=== PATIENT | male | born 1950 | race Caucasian/White ===

== ENCOUNTER 2020-03-18 10:59 | Observation (INO) ==
[2020-03-18] MEDS ORDERED: 0.9 % SODIUM CHLORIDE 1,000 ML IV ONE ×3 (11:10→17:17)
--- NOTE | 2020-03-18 11:26 | Emergency Department Note ---
Weakness HPI General Chief complaint: Weakness Stated complaint: weakness, dizziness Time Seen by Provider: 03/18/20 11:07 Source: patient Mode of arrival: EMS Limitations: no limitations History of Present Illness HPI Narrative: Narrative: This pleasant 70-year-old female comes emergency room accompanied by his Qi with 5-day history of generalized weakness. There is also lightheaded and dizziness that is off and on. He vomited today only once. No nausea. He has been eating fairly well. He was seen last week at [facility] for the same 5 days ago with lab test that were unremarkable. He denies vertigo. He is on blood pressure medication, lisinopril and this dose was decreased to half twice daily in December. His blood pressure has been a little bit low reportedly. No fevers or sweats but did feels quite cold and needed a blanket recently per his . Patient does not remember some of these things. Related Data Home Medications Medication Instructions Recorded Confirmed aspirin 81 mg tablet,delayed 81 mg PO QDAY tab 12/27/14 03/18/20 release donepezil 10 mg tablet 10 mg PO QHS 12/22/18 03/18/20 sertraline 50 mg tablet 50 mg PO QDAY 03/24/19 03/18/20 memantine 5 mg tablet 5 mg PO BID tab 09/20/19 03/13/20 colchicine 1.2 mg PO PRN PRN 03/18/20 03/18/20 Previous Rx's Medication Instructions Recorded pen needle, diabetic 29 gauge x #100 each 12/14/18 1/2" hydrochlorothiazide 12.5 mg capsule 12.5 mg PO QDAY #90 cap 06/05/19 atorvastatin 20 mg tablet 20 mg PO QDAY 90 Days #90 tab 06/22/19 metformin 1,000 mg tablet 500 mg PO BID 90 Days #90 tab 08/18/19 liraglutide 0.6 mg/0.1 mL (18 mg/3 1.2 mg SUB-Q QDAY #9 ml 01/08/20 mL) subcutaneous pen injector lisinopril 10 mg tablet 5 mg PO BID 90 Days #90 tab 03/05/20 Allergies Allergy/AdvReac Type Severity Reaction Status Date / Time No Known Drug Allergies Allergy Unknown Unknown Verified 03/18/20 11:04 Review of Systems ROS ROS Narrative: Narrative: Denies chest pain No cough or shortness of breath or wheeze or phlegm No abdominal pain, diarrhea, constipation, hematochezia No dysuria No back pain Headaches No anxiety or depression. [facility] Narrative Patient History Narrative: Narrative: DENIES: Renal disease, blood thinners, atrial fibrillation, myocardial inf arction, CVA, TIA, anxiety, depression. He reports having quit cigarettes 30 years ago and alcohol about the same time although there is alcohol and LFT elevation in his chart past medical history. Medical/Surgical/Family History All Active Problems (Updated 03/18/20 @ 17:16 by Minh Pressley DO) Weakness (Acute) Hypertension, essential (Acute) Dizziness (Acute) Bradycardia (Acute) Orthostasis (Acute) Hypokalemia (Acute) DNR (do not resuscitate) (Acute) Elevated lactic acid level (Acute) Bradycardia (Acute) Dizzy (Acute) Uncontrolled diabetes mellitus (Chronic) Mild cognitive impairment (Chronic) Elevated liver function tests (Chronic) Osteoarthritis of both hands (Chronic) Obesity (Chronic) Nuclear sclerosis (Chronic) Essential hypertension (Chronic) Hyperlipidemia (Chronic) Gout (Chronic) Eczema (Chronic) Diabetes mellitus, type II (Chronic) Alcohol abuse (Chronic) Abnormal LFTs (Chronic) Medical History (Updated 03/18/20 @ 17:16 by Minh Pressley DO) Abnormal LFTs (Chronic) 04/11/2014 Alcohol abuse (Chronic) Diabetes mellitus, type II (Chronic) Eczema (Chronic) Elevated liver function tests (Chronic) Essential hypertension (Chronic) Gout (Chronic) Hyperlipidemia (Chronic) Mild cognitive impairment (Chronic) Nuclear sclerosis (Chronic) Obesity (Chronic) Osteoarthritis of both hands (Chronic) Uncontrolled diabetes mellitus (Chronic) Surgical History (Updated 03/18/20 @ 11:25 by Minh Pressley DO) History of colonoscopy (Inactive) 02/19/2009 Dr. Sidhu NORMAL History of vasectomy (Inactive) Family History Father Social History Smoking Status: Former smoker Alcohol Intake Frequency: former alcohol drinker Substance Use: former substance user and crack/cocaine Exam Narrative Narrative: Narrative: General Limitations: no limitations General appearance: alert, in no apparent distress and nontoxic Head Head: atraumatic and normocephalic Eye Eye: Present normal appearance, PERRL and EOMI ENT ENT: Present normal oropharynx and mucous membranes moist (But only slightly.) Neck Neck: Present trachea midline; Absent lymphadenopathy and thyromegaly Chest Chest: Present symmetric chest wall rise Respiratory Respiratory: Present normal lung sounds bilaterally; Absent respiratory distress, rales/crackles, wheezes, stridor, accessory muscle use and prolonged expiratory phase Cardiovascular Cardiovascular: Present regular rate and bradycardia; Absent systolic murmur and diastolic murmur Adbominal Abdominal: Present soft; Absent distention, tenderness, guarding, rebound, rigidity, organomegaly and mass Extremities Extremities: Present normal capillary refill; Absent pedal edema, pretibial edema, calf tenderness and cyanosis Back Back: Absent CVA tenderness (R), CVA tenderness (L) and spinous process tenderness Neurological Neurological: Present alert and oriented X3 Psychiatric Psychiatric: Present normal affect, polite and pleasant; Absent depressed, agitated, anxious and poor eye contact Skin Skin: Present warm and dry; Absent cyanosis and pallor Course Vital Signs Vital signs: Vital Signs Temperature 97.0 F 03/18/20 10:59 Pulse Rate 56 L 03/18/20 10:59 Respiratory Rate 18 03/18/20 10:59 Blood Pressure 136/82 03/18/20 10:59 Pulse Oximetry (%) 100 03/18/20 10:59 Temperature 97.0 F 03/18/20 10:59 Pulse Rate 58 L 03/18/20 16:16 Respiratory Rate 19 03/18/20 16:16 Blood Pressure 154/66 03/18/20 16:16 Pulse Oximetry (%) 100 03/18/20 16:16 [facility] Narrative Medical decision making narrative: Narrative: 11:11 AM - generalized weakness, unexplained with some bradycardia and lightheadedness. Reporting some cold and chills recently. Because he is diabetic and is demonstrating some bradycardia and reportedly nearly passed out with trying to do a blood pressure with him standing, will need to do a fairly thorough work-up. IV fluids. Lactic acid to be included in his work-up, etc. Will do EKG, troponin and chest x-ray as well. EKG sinus rhythm, nonspecific flattening of the T waves in the inferior leads. No ACS signs. Appears to have a prolonged QT interval with a QTC of 589 calculated by the machine. Is mildly bradycardic at 55. Initial orthostatics include systolic 143 and 138 going from laying down to sit ting, but upon standing he became quite dizzy and stated he could not do it and had to lay back down. Diastolic from laying to sitting went from 59 to 65. Pulse went from 55 to 58. Chest x-ray normal. Labs returned with Normal white count at 6.9. Hemoglobin and hematocrit are 13.0 and 36.5. 5 days ago were 12.9 and 37.6. CMP with a potassium of 2.8, chloride slightly low at 94. Anion gap slightly high at 17.0. 5 days ago was 19.0. Creatinine 1.3, 5 days ago was 1.4 and it has been 1.1-1.3 over the past 4 years. BUN unremarkable at 9. Liver function tests unremarkable. Glucose 118. Troponin less than 0.01. Potassium rider 20 mEq ordered. 1:52 PM - lactic acid and UA microscopic still pending. 2:54 PM - repeat lactic acid is 2.7. Will do a CRP. Patient is been getting his potassium rider. CRP comes back 0.3. 4:35 PM - I spoke with Dr. French for the second time (interrupted the first time with another phone call from a specialist from outside the hospital), and he suggests it would be reasonable to talk to his plant puller. 4:42 PM - patient has not seen a plant puller in this area and would like to be seen by the [place] [facility]. 4:50 PM - I had a chance to speak with Dr. Feldman, who does not believe that a pacemaker would solve his orthostasis. He asked about his sodium which was 138. He thinks that it would be reasonable to rule out adrenal/endocrine abnormalities and to obtain an echocardiogram. It would be reasonable to do a 2-day Holter at discharge. Tilt table testing is not high on his "need to do" work-ups. Usual in treatment for autonomic neuropathy includes hydration, Florinef, compression stockings, and occasionally midodrine. Patient's initial specific gravity was 1.005. 5:07 PM - spoke with Dr. French again who is willing to accept this patient. Dr. French made aware also of his lactic acid initially 3.6 and then 2.7 but CRP of 0.3. 5:08 PM - spoke with patient and his . He does not want to have aggressive measures of resuscitation, would like to be DNR. Lab Data Result diagrams: 03/18/20 11:16 03/18/20 11:16 Labs: Lab Results 03/18/20 03/18/20 03/18/20 Range/Units 11:16 11:16 11:16 WBC 6.9 (4.50-11.00) K/mcL RBC 4.40 L (4.63-6.08) M/mcL Hgb 13.0 L (13.7-17.5) g/dL Hct 36.5 L (40.1-51.0) % MCV 83.0 (80.0-100.0) fL MCH 29.5 (26.0-34.0) pg MCHC 35.6 (31.0-36.0) g/dL RDW 11.8 (11.5-14.5) % Plt Count 295 (140-440) K/mcL MPV 9.6 (7.4-10.4) fL Gran % 65.2 (38.0-78.0) % Lymph % (Auto) 23.3 (15.5-49.0) % [place] % (Auto) 9.4 (1.0-12.0) % Eos % (Auto) 1.2 (0.0-7.0) % Baso % (Auto) 0.9 (0.0-2.0) % Gran # 4.50 (1.80-8.00) K/mcL Lymph # (Auto) 1.61 (1.50-4.80) K/mcL [place] # (Auto) 0.65 (0.10-0.90) K/mcL Eos # (Auto) 0.08 (0.00-0.70) K/mcL Baso # (Auto) 0.06 (0.00-0.30) K/mcL VBG Lactic Acid (0.5-2.0) mmol/L Sodium 138 (133-145) mmol/L Potassium 2.8 L* (3.3-5.1) mmol/L Chloride 94 L (96-108) mmol/L Carbon Dioxide 27 (22-30) mmol/L Anion Gap 17.0 H (8-16) BUN 9 (8-23) mg/dl Creatinine 1.3 H (0.7-1.2) mg/dl GFR Calculation 55 Glucose 118 H (70-105) mg/dL Calcium 9.3 (8.6-10.4) mg/dl Total Bilirubin 0.5 (0.0-1.0) mg/dL AST 22 (0-37) U/l ALT 23 (0-40) U/l Alkaline Phosphatase 107 (39-117) U/L Troponin T < 0.01 (0-0.03) ng/ml C-Reactive Protein (0.0-0.8) mg/dl Total Protein 6.6 (5.9-8.4) gm/dL Albumin 4.2 (3.2-5.2) gm/dL Globulin 2.4 (2.2-3.7) gm/dL Albumin/Globulin Ratio 1.8 (1.0-2.3) Urine Color Urine Appearance Urine pH (5.0-9.0) Ur Specific [place] (1.000-1.035) Urine Protein (NEG) mg/dL Urine Glucose (UA) (NEG) mg/dL Urine Ketones (NEG) mg/dL Urine Occult Blood (<0.03) mg/dL Urine Nitrate (NEG) Urine Bilirubin (NEG) mg/dL Urine Urobilinogen (NEG) mg/dL Ur Leukocyte Esterase (NEG) /uL Urine RBC (0-1) /hpf Urine WBC (0-4) /hpf Ur Squamous Epith Cells (0-4) /hpf Urine Bacteria (0) /hpf Ur Culture Indicated? 03/18/20 03/18/20 03/18/20 Range/Units 11:16 11:16 12:20 WBC (4.50-11.00) K/mcL RBC (4.63-6.08) M/mcL Hgb (13.7-17.5) g/dL Hct (40.1-51.0) % MCV (80.0-100.0) fL MCH (26.0-34.0) pg MCHC (31.0-36.0) g/dL RDW (11.5-14.5) % Plt Count (140-440) K/mcL MPV (7.4-10.4) fL Gran % (38.0-78.0) % Lymph % (Auto) (15.5-49.0) % [place] % (Auto) (1.0-12.0) % Eos % (Auto) (0.0-7.0) % Baso % (Auto) (0.0-2.0) % Gran # (1.80-8.00) K/mcL Lymph # (Auto) (1.50-4.80) K/mcL [place] # (Auto) (0.10-0.90) K/mcL Eos # (Auto) (0.00-0.70) K/mcL Baso # (Auto) (0.00-0.30) K/mcL VBG Lactic Acid 3.6 H (0.5-2.0) mmol/L Sodium (133-145) mmol/L Potassium (3.3-5.1) mmol/L Chloride (96-108) mmol/L Carbon Dioxide (22-30) mmol/L Anion Gap (8-16) BUN (8-23) mg/dl Creatinine (0.7-1.2) mg/dl GFR Calculation Glucose (70-105) mg/dL Calcium (8.6-10.4) mg/dl Total Bilirubin (0.0-1.0) mg/dL AST (0-37) U/l ALT (0-40) U/l Alkaline Phosphatase (39-117) U/L Troponin T (0-0.03) ng/ml C-Reactive Protein 0.3 (0.0-0.8) mg/dl Total Protein (5.9-8.4) gm/dL Albumin (3.2-5.2) gm/dL Globulin (2.2-3.7) gm/dL Albumin/Globulin Ratio (1.0-2.3) Urine Color Straw Urine Appearance Clear Urine pH 9.0 (5.0-9.0) Ur Specific [place] 1.005 (1.000-1.035) Urine Protein Neg (NEG) mg/dL Urine Glucose (UA) Negative (NEG) mg/dL Urine Ketones Neg (NEG) mg/dL Urine Occult Blood Neg (<0.03) mg/dL Urine Nitrate Neg (NEG) Urine Bilirubin Neg (NEG) mg/dL Urine Urobilinogen Neg (NEG) mg/dL Ur Leukocyte Esterase Neg (NEG) /uL Urine RBC < 1 (0-1) /hpf Urine WBC < 1 (0-4) /hpf Ur Squamous Epith Cells 0 (0-4) /hpf Urine Bacteria 0 (0) /hpf Ur Culture Indicated? No 03/18/20 Range/Units 13:35 WBC (4.50-11.00) K/mcL RBC (4.63-6.08) M/mcL Hgb (13.7-17.5) g/dL Hct (40.1-51.0) % MCV (80.0-100.0) fL MCH (26.0-34.0) pg MCHC (31.0-36.0) g/dL RDW (11.5-14.5) % Plt Count (140-440) K/mcL MPV (7.4-10.4) fL Gran % (38.0-78.0) % Lymph % (Auto) (15.5-49.0) % [place] % (Auto) (1.0-12.0) % Eos % (Auto) (0.0-7.0) % Baso % (Auto) (0.0-2.0) % Gran # (1.80-8.00) K/mcL Lymph # (Auto) (1.50-4.80) K/mcL [place] # (Auto) (0.10-0.90) K/mcL Eos # (Auto) (0.00-0.70) K/mcL Baso # (Auto) (0.00-0.30) K/mcL VBG Lactic Acid 2.7 H (0.5-2.0) mmol/L Sodium (133-145) mmol/L Potassium (3.3-5.1) mmol/L Chloride (96-108) mmol/L Carbon Dioxide (22-30) mmol/L Anion Gap (8-16) BUN (8-23) mg/dl Creatinine (0.7-1.2) mg/dl GFR Calculation Glucose (70-105) mg/dL Calcium (8.6-10.4) mg/dl Total Bilirubin (0.0-1.0) mg/dL AST (0-37) U/l ALT (0-40) U/l Alkaline Phosphatase (39-117) U/L Troponin T (0-0.03) ng/ml C-Reactive Protein (0.0-0.8) mg/dl Total Protein (5.9-8.4) gm/dL Albumin (3.2-5.2) gm/dL Globulin (2.2-3.7) gm/dL Albumin/Globulin Ratio (1.0-2.3) Urine Color Urine Appearance Urine pH (5.0-9.0) Ur Specific [place] (1.000-1.035) Urine Protein (NEG) mg/dL Urine Glucose (UA) (NEG) mg/dL Urine Ketones (NEG) mg/dL Urine Occult Blood (<0.03) mg/dL Urine Nitrate (NEG) Urine Bilirubin (NEG) mg/dL Urine Urobilinogen (NEG) mg/dL Ur Leukocyte Esterase (NEG) /uL Urine RBC (0-1) /hpf Urine WBC (0-4) /hpf Ur Squamous Epith Cells (0-4) /hpf Urine Bacteria (0) /hpf Ur Culture Indicated? Discharge Plan Patient/Caregiver Discharge Instructions Pt seen by [employer]/PA only: No Clinical Impression: Weakness, Hypertension, essential, Dizziness, Bradycardia, Orthostasis, Hypokalemia, DNR (do not resuscitate), Elevated lactic acid level Patient Disposition: Xfer As Inpt ([facility]) Follow up with: Charles Spann PA-C [Primary Care Provider] - Prescriptions: No Action (DME) pen needle, diabetic [Ultra-Thin II Ins Pen [place]] 29 gauge x 1/2" needle See Dose Instructions .ROUTE .MEDSUPPLY Qty: 100 RF: 0 hydrochlorothiazide 12.5 mg capsule 12.5 mg PO QDAY Qty: 90 RF: 3 atorvastatin 20 mg tablet 20 mg PO QDAY 90 Days Qty: 90 RF: 3 metformin 1,000 mg tablet 500 mg PO BID 90 Days Qty: 90 RF: 3 Victoza 3-Mati 0.6 mg/0.1 mL (18 mg/3 mL) pen injector 1.2 mg SUB-Q QDAY Qty: 9 RF: 1 lisinopril 10 mg tablet 5 mg PO BID 90 Days Qty: 90 RF: 1 aspirin 81 mg tablet,delayed release (DR/EC) 81 mg PO QDAY RF: 0 donepezil 10 mg tablet 10 mg PO QHS RF: 0 sertraline 50 mg tablet 50 mg PO QDAY RF: 0 memantine 5 mg tablet 5 mg PO BID RF: 0 colchicine 0.6 mg tablet 1.2 mg PO PRN PRN (Reason: gout) RF: 0
--- NOTE | 2020-03-18 11:56 | XRay Report ---
CLINICAL INFORMATION: Weakness COMPARISON: 09/15/2005 TECHNIQUE: Portable FINDINGS: The heart size, mediastinum and pulmonary vessels are unremarkable. The lungs are clear. There are no effusions. The bones and soft tissues are within normal limits. IMPRESSION: Normal chest. Interpreted and Authenticated by: Domingo Zimmerman 03/18/20
[2020-03-18 11:59] LABS: Basophils # (Auto) 0.06 K/mcL (0.00-0.30); Basophils % (Auto) 0.9 % (0.0-2.0); Eosinophils # (Auto) 0.08 K/mcL (0.00-0.70); Eosinophils % (Auto) 1.2 % (0.0-7.0); Granulocytes % (Auto) 65.2 % (38.0-78.0); Hematocrit 36.5 % (40.1-51.0); Lymphocytes # (Auto) 1.61 K/mcL (1.50-4.80); Lymphocytes % (Auto) 23.3 % (15.5-49.0); Mean Corpuscular HGB Conc 35.6 g/dL (31.0-36.0); Mean Platelet Volume 9.6 fL (7.4-10.4); Monocytes # (Auto) 0.65 K/mcL (0.10-0.90); Monocytes % (Auto) 9.4 % (1.0-12.0); Platelet Count 295 K/mcL (140-440); Red Cell Distribution Width 11.8 % (11.5-14.5); WBC 6.9 K/mcL (4.50-11.00)
[2020-03-18 12:25] LABS: ALT/SGPT 23 U/l (0-40); AST/SGOT 22 U/l (0-37); Albumin 4.2 gm/dL (3.2-5.2); Albumin/Globulin Ratio 1.8 (1.0-2.3); Alkaline Phosphatase 107 U/L (39-117); Bilirubin,Total 0.5 mg/dL (0.0-1.0); Blood Urea Nitrogen 9 mg/dl (8-23); Calcium 9.3 mg/dl (8.6-10.4); Carbon Dioxide 27 mmol/L (22-30); Globulin 2.4 gm/dL (2.2-3.7); Glomerular Filtration Rate 55; Glucose 118 mg/dL (70-105)
[2020-03-18 12:36] LABS: Chloride 94 mmol/L (96-108)
[2020-03-18] MEDS ORDERED: POTASSIUM CHLORIDE 20 MEQ in DEXTROSE 5% IN WATER 250 ML IV ONE (12:47)
[2020-03-18 14:46] LABS: Appearance,Urine CLEAR; Bacteria,Urine 0 /hpf (0); Bilirubin,Urine NEG (NEG); Color,Urine STRAW; Culture Indicated,Urine NO; Glucose,Urine (UA) NEGATIVE (NEG); Ketones,Urine NEG (NEG); Leukocyte Esterase,Urine NEG /uL (NEG); Nitrate,Urine NEG (NEG); Protein,Urine NEG (NEG); Specific Gravity,Urine 1.005 (1.000-1.035); Urine Blood NEG mg/dL (<0.03); Urine RBC < 1 /hpf (0-1); Urine Squamous Epithelial Cell 0 /hpf (0-4); Urine WBC < 1 /hpf (0-4); Urobilinogen,Urine NEG (NEG)
--- NOTE | 2020-03-18 17:19 | Internal Med History&Physical ---
HPI History of Present Illness Patient information: Note initiated : 03/18/20 at 5:17 pm Service Date, if different from initiated Date: [] Patient: Angel Dwyer a 70 y/o M admitted on for Weakness, Dizziness. Chief Complaint: [] History of present illness: Mr. Dwyer is a 70-year-old who presents to the ER with his Qi following increasing onset of lightheaded and dizziness over the last few days. Patient was evaluated in the minor care however symptoms fail to improve. He continued to experience dizzy symptoms while standing from sitting position. Per his he has been working in the yard pulling weeds and over 100 degrees weather. Initial work-up in the ER was consistent with mild KARYN/volume depletion and hypotension with blood pressure systolics 90s. Lactic acid elevated at 3.6 with potassium 2.8. Patient was started on crystalloids along with potassium placement. Cardiology was consulted due to episodes of bradycardia however cardiology recommended admitting patient for work-up and discharging on Holter monitoring. Subsequently hospitalist service was consulted. At the time of valve evaluation patient is alert and oriented. He continues to feel lightheaded. He has received 2 L of crystalloids. Currently on potassium placement. He endorses history as above. Denies fever chills, diarrhea, diuretic intake. He further denies chest pain, palpitation or diaphoresis. Review of systems Negative except as above PFSH PFSH All Active Problems (Updated 03/18/20 @ 17:16 by Minh Pressley DO) Weakness (Acute) Hypertension, essential (Acute) Dizziness (Acute) Bradycardia (Acute) Orthostasis (Acute) Hypokalemia (Acute) DNR (do not resuscitate) (Acute) Elevated lactic acid level (Acute) Bradycardia (Acute) Dizzy (Acute) Uncontrolled diabetes mellitus (Chronic) Mild cognitive impairment (Chronic) Elevated liver function tests (Chronic) Osteoarthritis of both hands (Chronic) Obesity (Chronic) Nuclear sclerosis (Chronic) Essential hypertension (Chronic) Hyperlipidemia (Chronic) Gout (Chronic) Eczema (Chronic) Diabetes mellitus, type II (Chronic) Alcohol abuse (Chronic) Abnormal LFTs (Chronic) Medical History (Updated 03/18/20 @ 17:16 by Minh Pressley DO) Abnormal LFTs (Chronic) 04/11/2014 Alcohol abuse (Chronic) Diabetes mellitus, type II (Chronic) Eczema (Chronic) Elevated liver function tests (Chronic) Essential hypertension (Chronic) Gout (Chronic) Hyperlipidemia (Chronic) Mild cognitive impairment (Chronic) Nuclear sclerosis (Chronic) Obesity (Chronic) Osteoarthritis of both hands (Chronic) Uncontrolled diabetes mellitus (Chronic) Surgical History (Updated 03/18/20 @ 11:25 by Minh Pressley DO) History of colonoscopy (Inactive) 02/19/2009 Dr. Sidhu NORMAL History of vasectomy (Inactive) Family History Father Alcohol abuse Aunt Malignant neoplasm of breast Maternal Mother Malignant neoplasm of colon, Onset Age: 60 Brother Cerebrovascular accident Malignant neoplasm of prostate Father Sudden , cause unknown, Onset Age: 70 Massive SC or stroke, not sure Social History marital status: education level: high school occupational status: retired smoking status: Former smoker quit date: 07/18/02 alcohol intake frequency: former alcohol drinker substance use type: former substance user and crack/cocaine MEDS/ALLERGIES Home Medications and Allergies Home Medications Medication Instructions Recorded Confirmed Type aspirin 81 mg tablet,delayed 81 mg PO QDAY tab 12/27/14 03/18/20 History release pen needle, diabetic 29 gauge x #100 each 12/14/18 03/18/20 Rx 1/2" donepezil 10 mg tablet 10 mg PO QHS 12/22/18 03/18/20 History sertraline 50 mg tablet 50 mg PO QDAY 03/24/19 03/18/20 History hydrochlorothiazide 12.5 mg capsule 12.5 mg PO QDAY #90 cap 06/05/19 03/18/20 Rx atorvastatin 20 mg tablet 20 mg PO QDAY 90 Days #90 tab 06/22/19 03/18/20 Rx metformin 1,000 mg tablet 500 mg PO BID 90 Days #90 tab 08/18/19 03/18/20 Rx memantine 5 mg tablet 10 mg PO BID tab 09/20/19 03/19/20 History liraglutide 0.6 mg/0.1 mL (18 mg/3 1.2 mg SUB-Q QDAY #9 ml 01/08/20 03/18/20 Rx mL) subcutaneous pen injector lisinopril 10 mg tablet 5 mg PO BID 90 Days #90 tab 03/05/20 03/18/20 Rx colchicine 1.2 mg PO PRN PRN 03/18/20 03/18/20 History Allergies Allergy/AdvReac Type Severity Reaction Status Date / Time No Known Drug Allergies Allergy Unknown Unknown Verified 03/18/20 11:04 EXAM Constitutional Vitals: Temp Pulse Resp BP Pulse Ox 97.0 F 54 L 21 163/75 99 03/18/20 10:59 03/18/20 17:17 03/18/20 17:17 03/18/20 17:16 03/18/20 17:17 Head normocephalic Oral cavity moist No ear nose discharge Eye movement symmetrical Neck supple no lymphadenopathy S1-S2 regular bradycardic mid 50s Nonlabored breathing Nondistended nontender abdomen Lower extremity no cyanosis clubbing or joint swelling Skin no suspicious lesion Psych anxious but alert cooperative Neuro normal higher function DATA Data Completed and Pending Labs: Labs from last 24 hours 03/18/20 03/18/20 03/18/20 13:35 12:20 11:16 WBC RBC Hgb Hct MCV MCH MCHC RDW Plt Count MPV Gran % Lymph % (Auto) [place] % (Auto) Eos % (Auto) Baso % (Auto) Gran # Lymph # (Auto) [place] # (Auto) Eos # (Auto) Baso # (Auto) VBG Lactic Acid 2.7 H Sodium Potassium Chloride Carbon Dioxide Anion Gap BUN Creatinine GFR Calculation Glucose Calcium Total Bilirubin AST ALT Alkaline Phosphatase Troponin T C-Reactive Protein 0.3 Total Protein Albumin Globulin Albumin/Globulin Ratio Urine Color Straw Urine Appearance Clear Urine pH 9.0 Ur Specific [place] 1.005 Urine Protein Neg Urine Glucose (UA) Negative Urine Ketones Neg Urine Occult Blood Neg Urine Nitrate Neg Urine Bilirubin Neg Urine Urobilinogen Neg Ur Leukocyte Esterase Neg Urine RBC < 1 Urine WBC < 1 Ur Squamous Epith Cells 0 Urine Bacteria 0 Ur Culture Indicated? No 03/18/20 03/18/20 03/18/20 11:16 11:16 11:16 WBC RBC Hgb Hct MCV MCH MCHC RDW Plt Count MPV Gran % Lymph % (Auto) [place] % (Auto) Eos % (Auto) Baso % (Auto) Gran # Lymph # (Auto) [place] # (Auto) Eos # (Auto) Baso # (Auto) VBG Lactic Acid 3.6 H Sodium 138 Potassium 2.8 L* Chloride 94 L Carbon Dioxide 27 Anion Gap 17.0 H BUN 9 Creatinine 1.3 H GFR Calculation 55 Glucose 118 H Calcium 9.3 Total Bilirubin 0.5 AST 22 ALT 23 Alkaline Phosphatase 107 Troponin T < 0.01 C-Reactive Protein Total Protein 6.6 Albumin 4.2 Globulin 2.4 Albumin/Globulin Ratio 1.8 Urine Color Urine Appearance Urine pH Ur Specific [place] Urine Protein Urine Glucose (UA) Urine Ketones Urine Occult Blood Urine Nitrate Urine Bilirubin Urine Urobilinogen Ur Leukocyte Esterase Urine RBC Urine WBC Ur Squamous Epith Cells Urine Bacteria Ur Culture Indicated? 03/18/20 11:16 WBC 6.9 RBC 4.40 L Hgb 13.0 L Hct 36.5 L MCV 83.0 MCH 29.5 MCHC 35.6 RDW 11.8 Plt Count 295 MPV 9.6 Gran % 65.2 Lymph % (Auto) 23.3 [place] % (Auto) 9.4 Eos % (Auto) 1.2 Baso % (Auto) 0.9 Gran # 4.50 Lymph # (Auto) 1.61 [place] # (Auto) 0.65 Eos # (Auto) 0.08 Baso # (Auto) 0.06 VBG Lactic Acid Sodium Potassium Chloride Carbon Dioxide Anion Gap BUN Creatinine GFR Calculation Glucose Calcium Total Bilirubin AST ALT Alkaline Phosphatase Troponin T C-Reactive Protein Total Protein Albumin Globulin Albumin/Globulin Ratio Urine Color Urine Appearance Urine pH Ur Specific [place] Urine Protein Urine Glucose (UA) Urine Ketones Urine Occult Blood Urine Nitrate Urine Bilirubin Urine Urobilinogen Ur Leukocyte Esterase Urine RBC Urine WBC Ur Squamous Epith Cells Urine Bacteria Ur Culture Indicated? A/P Narrative A/P Narrative: * Orthostatic hypotension. Likely volume depletion. Continue crystalloid/hold antihypertensives. Monitor overnight. Likely a component of autonomic dysfunction. * Hypokalemia replace as indicated * Mild KARYN likely secondary volume depletion. Continue crystalloids. * DM type II continue basal prandial insulin * History of gout continue colchicine * Dementia continue donepezil/memantine * Anxiety disorder continue sertraline * Hyperlipidemia continue statin * Full code * Prophylaxis heparin Plan * Observation PCU admit * Potassium replacement * Crystalloid * Hold antihypertensives * Telemetry monitoring/outpatient Holter monitoring * Pre-existing medical condition management home medication Time Spent With Patient Time: Total time spent is greater than 50% in coordination of care (as documented) at patient's floor/unit and/or counseling patient:
[2020-03-18] MEDS ORDERED: ONDANSETRON 4 MG/2 ML VIAL IV PRN (17:33)
[2020-03-18] MEDS ORDERED: 0.9 % SODIUM CHLORIDE 1,000 ML IV SCH (17:33)
[2020-03-18] MEDS ORDERED: MELATONIN 3 MG TABLET PO PRN (17:33)
[2020-03-18] MEDS ORDERED: BISACODYL 10 MG SUPP.RECT PR PRN (17:33)
[2020-03-18] MEDS ORDERED: ACETAMINOPHEN 650 MG/65 ML BOTTLE IV PRN (17:33)
[2020-03-18] MEDS ORDERED: DEXTROSE 50% 50 ML VIAL IV PRN (17:33)
[2020-03-18] MEDS ORDERED: guaiFENesin/CODEINE 10 ML UDC PO PRN (17:33)
[2020-03-18] MEDS ORDERED: DEXTROSE 31 GM ORAL.SUSP PO PRN (17:33)
[2020-03-18] MEDS ORDERED: POLYETHYLENE GLYCOL 3350 17 GM PACKET PO PRN (17:33)
[2020-03-18] MEDS ORDERED: ONDANSETRON 4 MG ODT TABLET SL PRN (17:33)
[2020-03-18] MEDS ORDERED: ACETAMINOPHEN 325 MG TABLET PO PRN (17:33)
[2020-03-18] MEDS: INSULIN LISPRO 1 UNIT/0.01 ML UNIT SQ SCH ×2 (17:58→21:09)
[2020-03-18] MEDS ORDERED: SENNOSIDES/DOCUSATE SODIUM 1 TAB TABLET PO SCH (21:00)
[2020-03-18] MEDS: HEPARIN 5,000 UNIT/ML VIAL SQ SCH (21:09)
[2020-03-18] MEDS: DOCUSATE SODIUM 100 MG CAPSULE PO SCH (21:09)
[2020-03-18] MEDS: 0.9 % SODIUM CHLORIDE 10 ML SYRINGE IV SCH (21:11)
[2020-03-19] MEDS: 0.9 % SODIUM CHLORIDE 10 ML SYRINGE IV SCH (05:36)
[2020-03-19 05:55] LABS: Hematocrit 33.3 % (40.1-51.0); Hemoglobin 11.3 g/dL (13.7-17.5); Mean Cell Volume 87.6 fL (80.0-100.0); Mean Corpuscular HGB Conc 33.9 g/dL (31.0-36.0); Mean Platelet Volume 9.9 fL (7.4-10.4); Platelet Count 265 K/mcL (140-440); Red Cell Distribution Width 12.3 % (11.5-14.5)
[2020-03-19 06:15] LABS: ALT/SGPT 18 U/l (0-40); AST/SGOT 18 U/l (0-37); Albumin 3.5 gm/dL (3.2-5.2); Albumin/Globulin Ratio 1.8 (1.0-2.3); Alkaline Phosphatase 82 U/L (39-117); Bilirubin,Direct < 0.2 mg/dL (0.0-0.3); Bilirubin,Total 0.3 mg/dL (0.0-1.0); Blood Urea Nitrogen 9 mg/dl (8-23); Calcium 8.9 mg/dl (8.6-10.4); Carbon Dioxide 27 mmol/L (22-30); Chloride 101 mmol/L (96-108); Glomerular Filtration Rate 67; Glucose 110 mg/dL (70-105); Lactate Dehydrogenase 108 U/L (94-250); Phosphorous 4.2 mg/dL (2.7-4.5); Triglycerides 89 mg/dl (<150); Uric Acid 4.9 mg/dL (2.5-8.0)
[2020-03-19] MEDS: INSULIN LISPRO 1 UNIT/0.01 ML UNIT SQ SCH ×2 (07:15→11:41)
[2020-03-19] MEDS ORDERED: metFORMIN 500 MG TABLET PO SCH (08:00)
[2020-03-19] MEDS ORDERED: COLCHICINE 0.6 MG TABLET PO PRN (08:19)
[2020-03-19 08:27] LABS: Basophils % (Manual) 1 % (0-2); Eosinophils % (Manual) 4 % (0-7); Lymphocytes % 35 % (15-49); Monocytes % (Manual) 8 % (1-12); Platelet Estimate NORMAL (NORMAL); RBC Morphology NORMAL (NORMAL); Segmented Neutrophils % 52 % (38-78)
[2020-03-19] MEDS ORDERED: POTASSIUM CHLORIDE 20 MEQ TABLET PO ONE (08:56)
[2020-03-19] MEDS ORDERED: SERTRALINE 50 MG TABLET PO SCH (09:00)
[2020-03-19] MEDS ORDERED: ASPIRIN 81 MG TAB.CHEW PO SCH (09:00)
[2020-03-19] MEDS ORDERED: sitaGLIPtin 100 MG TABLET PO SCH (09:00)
[2020-03-19] MEDS ORDERED: MULTIVIT,THER IRON,CA,FA & MIN 1 TABLET PO SCH (09:00)
[2020-03-19] MEDS ORDERED: LIRAGLUTIDE 1.2 MG SUB-Q SCH (09:00)
[2020-03-19] MEDS ORDERED: ATORVASTATIN 20 MG TABLET PO SCH (09:00)
[2020-03-19] MEDS ORDERED: LISINOPRIL 5 MG TABLET PO SCH (09:00)
[2020-03-19] MEDS: DOCUSATE SODIUM 100 MG CAPSULE PO SCH (09:18)
[2020-03-19] MEDS: HEPARIN 5,000 UNIT/ML VIAL SQ SCH (09:18)
--- NOTE | 2020-03-19 12:54 | Discharge Summary ---
Discharge Provider Provider Patient information: Note initiated : 03/19/20 at 12:52 pm Service Date, if different from initiated Date: [] Patient: Angel Dwyer 70 y/o M admitted on 03/18/20 for Weakness, Dizziness. History of present illness: Mr. Dwyer is a 70-year-old who presents to the ER with his Qi following increasing onset of lightheaded and dizziness over the last few days. Patient was evaluated in the minor care however symptoms fail to improve. He continued to experience dizzy symptoms while standing from sitting position. Per his he has been working in the yard pulling weeds and over 100 degrees weather. Initial work-up in the ER was consistent with mild KARYN/volume depletion and hypotension with blood pressure systolics 90s. Lactic acid elevated at 3.6 with potassium 2.8. Patient was started on crystalloids along with potassium placement. Cardiology was consulted due to episodes of bradycardia however cardiology recommended admitting patient for work-up and discharging on Holter monitoring. Subsequently hospitalist service was consulted. At the time of valve evaluation patient is alert and oriented. He continues to feel lightheaded. He has received 2 L of crystalloids. Currently on potassium placement. He endorses history as above. Denies fever chills, diarrhea, diuretic intake. He further denies chest pain, palpitation or diaphoresis. 03/19 patient doing well. Potassium improved to 3.3 on continue replacement. Creatinine down from 1.3-1.1. Systolics improved. Patient asymptomatic denies dizziness lightheadedness. Feels at baseline. Chlorthalidone discontinued lisinopril dose reduced to half. Will need to follow-up with outpatient cardiology/PCP for hypertension management and dose titration. No telemetry events including significant bradycardia other than heart rate in mid 40s overnight. Currently asymptomatic. Discharging home on Holter monitoring advised to follow-up with cardiology. Date of admission: 03/18/20 17:32 Discharge date: 03/19/20 Primary care physician: Charles Spann PA-C Consults: 03/18/20 Consult to Physician [CONS] Stat Comment: Consulting Provider: Jayant Marie Reason For Exam: Physician to Consult Discharge Meds Discharge Medications Home Medications aspirin 81 mg tablet,delayed release 81 mg PO QDAY tab 12/27/14 [History Confirmed 03/18/20 Last Taken Unknown] pen needle, diabetic 29 gauge x 1/2" #100 each 12/14/18 [Rx Confirmed 03/18/20 Last Taken Unknown] donepezil 10 mg tablet 10 mg PO QHS 12/22/18 [History Confirmed 03/18/20 Last Taken Unknown] sertraline 50 mg tablet 50 mg PO QDAY 03/24/19 [History Confirmed 03/18/20 Last Taken Unknown] atorvastatin 20 mg tablet 20 mg PO QDAY 90 Days #90 tab 06/22/19 [Rx Confirmed 03/18/20 Last Taken Unknown] metformin 1,000 mg tablet 500 mg PO BID 90 Days #90 tab 08/18/19 [Rx Confirmed 03/18/20 Last Taken Unknown] memantine 5 mg tablet 10 mg PO BID tab 09/20/19 [History Confirmed 03/19/20 Last Taken Unknown] liraglutide 0.6 mg/0.1 mL (18 mg/3 mL) subcutaneous pen injector 1.2 mg SUB-Q QDAY #9 ml 01/08/20 [Rx Confirmed 03/18/20 Last Taken Unknown] colchicine 1.2 mg PO PRN PRN 03/18/20 [History Confirmed 03/18/20 Last Taken Unknown] lisinopril 5 mg PO DAILY #30 tab 03/19/20 [Rx Last Taken Unknown] COURSE Hospital Course Hospital course: . Discharge diagnosis: . Time Spent with Patient Time attestation: Total time spent providing and/or coordinating discharge services: EXAM Constitutional Vitals: Temp Pulse Resp BP Pulse Ox 98.9 F 68 16 121/60 97 03/19/20 12:46 03/19/20 12:46 03/19/20 11:07 03/19/20 12:46 03/19/20 12:46 Discharge Data Data Completed and Pending Labs on day of discharge: Labs from last 24 hours 03/19/20 03/19/20 03/18/20 05:00 05:00 13:35 WBC 9.0 RBC 3.80 L Hgb 11.3 L Hct 33.3 L MCV 87.6 MCH 29.7 MCHC 33.9 RDW 12.3 Plt Count 265 MPV 9.9 Total Counted 100 Seg Neutrophils % 52 Band Neutrophils % Not Reportable Lymphocytes % 35 Monocytes % (Manual) 8 Eosinophils % (Manual) 4 Basophils % (Manual) 1 Platelet Estimate Normal RBC Morphology Normal VBG Lactic Acid 2.7 H Sodium 138 Potassium 3.3 Chloride 101 Carbon Dioxide 27 Anion Gap 10.0 BUN 9 Creatinine 1.1 GFR Calculation 67 Glucose 110 H Uric Acid 4.9 Calcium 8.9 Phosphorus 4.2 Magnesium 1.8 Total Bilirubin 0.3 Direct Bilirubin < 0.2 GGT 19 AST 18 ALT 18 Alkaline Phosphatase 82 Lactate Dehydrogenase 108 C-Reactive Protein Total Protein 5.5 L Albumin 3.5 Globulin 2.0 L Albumin/Globulin Ratio 1.8 Triglycerides 89 Urine Color Urine Appearance Urine pH Ur Specific Apex Urine Protein Urine Glucose (UA) Urine Ketones Urine Occult Blood Urine Nitrate Urine Bilirubin Urine Urobilinogen Ur Leukocyte Esterase Urine RBC Urine WBC Ur Squamous Epith Cells Urine Bacteria Ur Culture Indicated? 03/18/20 03/18/20 12:20 11:16 WBC RBC Hgb Hct MCV MCH MCHC RDW Plt Count MPV Total Counted Seg Neutrophils % Band Neutrophils % Lymphocytes % Monocytes % (Manual) Eosinophils % (Manual) Basophils % (Manual) Platelet Estimate RBC Morphology VBG Lactic Acid Sodium Potassium Chloride Carbon Dioxide Anion Gap BUN Creatinine GFR Calculation Glucose Uric Acid Calcium Phosphorus Magnesium Total Bilirubin Direct Bilirubin GGT AST ALT Alkaline Phosphatase Lactate Dehydrogenase C-Reactive Protein 0.3 Total Protein Albumin Globulin Albumin/Globulin Ratio Triglycerides Urine Color Straw Urine Appearance Clear Urine pH 9.0 Ur Specific Apex 1.005 Urine Protein Neg Urine Glucose (UA) Negative Urine Ketones Neg Urine Occult Blood Neg Urine Nitrate Neg Urine Bilirubin Neg Urine Urobilinogen Neg Ur Leukocyte Esterase Neg Urine RBC < 1 Urine WBC < 1 Ur Squamous Epith Cells 0 Urine Bacteria 0 Ur Culture Indicated? No Discharge Plan Patient/Caregiver Discharge Instructions Activity: increase activity as tolerated Diet: Regular Diet Instructions: Hypokalemia (GEN), Hypotension (GEN), Holter Monitor (GEN) Activity Restrictions/Additional Instructions: Discontinue hydrochlorothiazide Continue lisinopril 5 mg daily Outpatient Holter monitoring Follow-up with cardiology as outpatient PCP to optimize dose titration and hypertension management Return to ER if worsening lightheadedness dizziness noted This discharge packet is provided to you to help keep you informed about your care. We want to ensure you get everything you need when you go home. You will also be receiving a call from us in a few days to follow up with you and see how you are doing since your discharge. This gives us a chance to listen to any concerns you maybe experiencing since you were discharged or any additional needs you may have, as well as providing us feedback on your care experience. We strive to always provide excellent care and thank you for your feedback and for choosing [facility]. You are being sent home with a 48 hour holter monitor. Please register as out patient for this on your way home today. Prescriptions: New lisinopril 5 mg Tablet 5 mg PO DAILY Qty: 30 RF: 0 Continued (DME) pen needle, diabetic [Ultra-Thin II Ins Pen [place]] 29 gauge x 1/2" needle See Dose Instructions .ROUTE .MEDSUPPLY Qty: 100 RF: 0 atorvastatin 20 mg tablet 20 mg PO QDAY 90 Days Qty: 90 RF: 3 metformin 1,000 mg tablet 500 mg PO BID 90 Days Qty: 90 RF: 3 Victoza 3-Mati 0.6 mg/0.1 mL (18 mg/3 mL) pen injector 1.2 mg SUB-Q QDAY Qty: 9 RF: 1 aspirin 81 mg tablet,delayed release (DR/EC) 81 mg PO QDAY RF: 0 donepezil 10 mg tablet 10 mg PO QHS RF: 0 sertraline 50 mg tablet 50 mg PO QDAY RF: 0 memantine 5 mg tablet 10 mg PO BID RF: 0 colchicine 0.6 mg tablet 1.2 mg PO PRN PRN (Reason: gout) RF: 0 Discontinued hydrochlorothiazide 12.5 mg capsule 12.5 mg PO QDAY Qty: 90 RF: 3 lisinopril 10 mg tablet 5 mg PO BID 90 Days Qty: 90 RF: 1 Follow Up Plan Follow up with: Charles Spann PA-C [Primary Care Provider] - 03/21/20 10:45 am Balbir Salcedo MD [Physician] - (A referral has been sent, they will contact you to schedule an appointment.) Patient Disposition: Home Health Service Prognosis: Fair Rehab Potential: Fair I certify that the patient requires SNF services: No Overall status at discharge: patient is progressing back to baseline Discharge Orders: Discharge Order (Routine); Ordered 03/19/20 Ordered By: Jayant Marie
[2020-03-19] MEDS ORDERED: DONEPEZIL 10 MG TABLET PO SCH (21:00)
== END 2020-03-19 13:55 | disposition home health service (06) ==
LOC: ED 10:59 → ICU 10:59
PROVIDERS: ADMIT Internal Medicine; ATTEND Internal Medicine